=== PATIENT | male | born 1955 | race Caucasian/White ===

== ENCOUNTER 2019-01-22 18:08 | Emergency (ER) | payer MEDICAID ==
[~2019-01-22] VITALS: Ht 160 cm; Wt 79.4 kg
[2019-01-22 18:11] VITALS: Ht 160 cm; Wt 79.4 kg
[2019-01-22 19:48] VITALS: BP 176/83
== END 2019-01-22 19:48 | disposition home or self-care (01) ==
LOC: ED 18:08
DX: K02.9 Dental caries, unspecified (principal); I10 Essential (primary) hypertension
CPT/HCPCS: J2270